=== PATIENT | male | born 1965 | race Hispanic/Latino ===

== ENCOUNTER 2021-03-07 09:14 | Inpatient (IN) | payer BC ==
[2021-03-05 13:02] VITALS: BMI 25.7
[2021-03-07] MEDS ORDERED: Oxymetazoline HCl 0.05% (30 ML BOT) ONE ×2 (11:29→17:47)
[2021-03-07] MEDS ORDERED: Lidocaine 1% w/Epinephrine 1:100K 20 ML VIAL ONE (11:50)
[2021-03-07] MEDS ORDERED: Bacitracin Zinc Ointment 30 gm TUBE ONE (11:51)
[2021-03-07] MEDS ORDERED: AFRIN NASAL MIST 15 ML BOT ONE (11:51)
[2021-03-07] MEDS ORDERED: Fentanyl 100 MCG/2 ML VIAL ONE ×2 (11:57→13:09)
[2021-03-07] MEDS ORDERED: Midazolam HCl 2 mg/2 ml Vial ONE (11:57)
[2021-03-07] MEDS ORDERED: Lidocaine 1% PF 5 ML VIAL ONE (12:15)
[2021-03-07] MEDS ORDERED: Rocuronium Bromide 10 MG/ML (10ML VIAL) ONE (12:15)
[2021-03-07] MEDS ORDERED: ePHEDrine 50 MG/ML VIAL ONE (12:15)
[2021-03-07] MEDS ORDERED: PROPOFOL 200 MG/20 ML VIAL ONE (12:15)
[2021-03-07] MEDS ORDERED: Glycopyrrolate 0.2 MG/ML 5 ML SYRINGE ONE (12:15)
[2021-03-07] MEDS ORDERED: Promethazine HCl 25 MG/ML VIAL ONE (13:43)
[2021-03-07] MEDS ORDERED: Morphine 4 MG/ML VIAL ONE (14:47)
[2021-03-07] MEDS ORDERED: Hydrocodone-Acetamin 15 ML UDCUP ONE (15:20)
[2021-03-07] MEDS ORDERED: AFRIN NASAL MIST 15 ML BOT NS PRN (18:37)
[2021-03-07] MEDS ORDERED: Morphine 4 MG/ML VIAL SLOW IVP PRN (18:38)
[2021-03-07] MEDS ORDERED: HYDROcodone/Acetaminophen 5/325 mg Tablet PO PRN ×2 (18:39→18:40)
[2021-03-07] MEDS ORDERED: Promethazine HCl 25 MG in Sodium Chloride 0.9% 50 ML IVPB PRN (18:41)
[2021-03-07 18:56] LABS: Hemoglobin 16.3 g/dL (14.0-18.0); Mean Corpuscular HGB CONC 33.9 g/dL (32.0-36.0); Mean Corpuscular Hemoglobin 31.1 pg (27.0-31.0); Mean Corpuscular Volume 91.8 fL (78.0-98.0); Mean Platelet Volume 8.3 fL (7.4-10.4); Platelet Count 319 thou/uL (130-400); RBC Distribution Width 12.8 % (11.5-14.5); Red Blood Cell (RBC) Count 5.24 mill/uL (4.70-6.10); White Blood Cell (WBC) Count 20.9 thou/uL (4.8-10.8)
[2021-03-07 19:12] LABS: Band 1 % (5-11); Lymphocytes 2 % (21-51); MDiff Complete? YES; Neutrophil 96 % (42-75); Platelet Morphology Comment Appears Adequate; RBC Morphology Normal
[2021-03-07] MEDS: Sodium Chloride 0.45% 1,000 ML IV SCH (21:16)
[2021-03-08] MEDS: Sodium Chloride 0.45% 1,000 ML IV SCH (04:23)
[2021-03-08 08:44] VITALS: BP 137/81
[2021-03-08 08:49] VITALS: TEMP 98.2
[2021-03-09] MEDS ORDERED: FLU VACC QS2021-22(6MOS UP)/PF 60 MCG/0.5 ML SYRINGE IM ONE (09:00)
== END 2021-03-08 09:57 | disposition home or self-care (01) | DRG 145 ==
LOC: SDC 09:14 → T4-A 18:28
PROVIDERS: ADMIT Otolaryngology Plastic Surgery within the Head & Neck; ATTEND Otolaryngology Plastic Surgery within the Head & Neck
PROC: 09RM47Z Replacement of Nasal Septum with Autologous Tissue Substitute, Percutaneous Endoscopic Approach (ICD-10-PCS; principal; 2021-03-07)
PROC: 09BV4ZZ Excision of Left Ethmoid Sinus, Percutaneous Endoscopic Approach (ICD-10-PCS; 2021-03-07)
PROC: 09BU4ZZ Excision of Right Ethmoid Sinus, Percutaneous Endoscopic Approach (ICD-10-PCS; 2021-03-07)
DX: J34.3 Hypertrophy of nasal turbinates (principal); J32.8 Other chronic sinusitis; J34.2 Deviated nasal septum; E78.00 Pure hypercholesterolemia, unspecified; M19.90 Unspecified osteoarthritis, unspecified site; E11.9 Type 2 diabetes mellitus without complications; Z88.1 Allergy status to other antibiotic agents; Z88.8 Allergy status to other drugs, medicaments and biological substances; J34.89 Other specified disorders of nose and nasal sinuses
CPT/HCPCS: 36415; 36416; 85025; 93005; 93010; J2250; J2270; J2550; J2704; J3010; J3490